=== PATIENT | female | born 1985 | race Asian ===

== ENCOUNTER 2019-11-08 17:37 | Inpatient (IN) | payer OTHER ==
[2019-11-08] MEDS ORDERED: Ibuprofen TAB* 600 MG PO ONE (20:06)
[2019-11-08 20:13] LABS: ABS Eosinophils 0.1 10^3/ul (0-0.6); ABS Lymphocytes 1.1 10^3/ul (1.0-4.8); ABS Monocytes 0.7 10^3/ul (0-0.8); ABS Neutrophils 6.6 10^3/ul (1.5-7.7); Eosinophil % 0.9 %; Hematocrit 33 % (35-47); Hemoglobin 10.9 g/dL (12.0-16.0); Lymphocyte % 13.3 %; Mean Corpuscular HGB Conc 33 g/dL (31-36); Mean Corpuscular Hemoglobin 25 pg (27-31); Mean Corpuscular Volume 75 fL (80-97); Mean Platelet Volume 8.5 fL (7.4-10.4); Platelet Count 282 10^3/uL (150-450); Red Blood Count 4.43 10^6 /uL (3.70-4.87); Red Cell Distribution Width 13 % (10-15); White Blood Count 8.5 10^3/uL (3.5-10.8)
[2019-11-08 20:23] LABS: INR 1.01 (0.82-1.09)
[2019-11-08 20:33] LABS: Albumin 4.2 g/dL (3.2-5.2); Albumin/Globulin Ratio 1.5 (1-3); BUN/Creatinine Ratio 21.2 (8-20); C Reactive Protein 22.61 mg/L (<8.01); Calcium 9.2 mg/dL (8.6-10.3); EGFR African American 162.4 (>60); EGFR Non-African American 134.2 (>60); Globulin 2.8 g/dL (2-4); Potassium 3.5 mmol/L (3.5-5.0); Total Bilirubin 0.4 mg/dL (0.2-1.0)
[2019-11-08] MEDS ORDERED: Piperacillin/Tazobac ADVAN(*) 3.375 GM in NS 0.9% 100 ML* 100 ML IVPB ONE (22:52)
--- NOTE | 2019-11-08 23:05 | ED ---
Skin Complaint - HPI Summary HPI Summary: 34 year old female presents with infection to left ear for the past 3 days. She started doxycycline on Wednesday. States the redness and swelling got worse. She say dr rojo who sent her in IV antibiotics and possible drainage tomorrow. She denies any fevers or chills. She states she has been having drainage from the area. She has no medical conditions. Denies any sinus congestion. No dental pain. took some ibuprofen which helped. - History of Current Complaint Chief Complaint: EDGeneral Time Seen by Provider: 11/08/19 22:40 Stated Complaint: REFERRAL FROM DR ROJO FOR ABCESS PER PT Hx Last Menstrual Period: 04/23/17 Pain Intensity: 2 - Allergy/Home Medications Allergies/Adverse Reactions: Allergies Allergy/AdvReac Type Severity Reaction Status Date / Time No Known Allergies Allergy Verified 05/24/17 07:14 Home Medications: Home Medications Ibuprofen TAB* [Advil TAB*] 600 mg PO Q6HR PRN 11/07/13 [History Confirmed 11/07] Doxycycline Hyclate 100 mg PO BID 11/08/19 [History Confirmed 11/08/19] Loratadine [Claritin] 10 mg PO DAILY 11/08/19 [History Confirmed 11/08/19] PMH/Surg Hx/FS Hx/Imm Hx Endocrine/Hematology History: Denies: Hx Anticoagulant Therapy Respiratory History: Denies: Hx Asthma - Surgical History Surgery Procedure, Year, and Place: ORIF L arm. L eardrum replacement Infectious Disease History: No Infectious Disease History: Denies: Hx Clostridium Difficile, Hx Hepatitis, Hx Human Immunodeficiency Virus (HIV), Hx of Known/Suspected MRSA, Hx Shingles, Hx Tuberculosis, History Other Infectious Disease, Traveled Outside the [place] in Last 30 Days - Family History Known Family History: Positive: Unknown, Other - NO HX OF ANAPHLAXIS - Social History Alcohol Use: Occasionally Substance Use Type: Reports: None Smoking Status (MU): Never Smoked Tobacco Review of Systems Negative: Fever Negative: Chest Pain Negative: Shortness Of Breath Positive: Rash All Other Systems Reviewed And Are Negative: Yes Physical Exam Triage Information Reviewed: Yes Vital Signs On Initial Exam: Initial Vitals Temp Pulse Resp BP Pulse Ox 97.7 F 83 16 132/76 100 11/08/19 17:38 11/08/19 17:38 11/08/19 17:38 11/08/19 17:38 11/08/19 17:38 Vital Signs Reviewed: Yes Appearance: Positive: Well-Appearing Skin: Positive: Warm, Dry Head/Face: Positive: Normal Head/Face Inspection Eyes: Positive: Normal, EOMI, GORDON, Conjunctiva Clear ENT: Positive: Pharynx normal, TMs normal, Other - extensive erythema and edema in front of left ear, some drainage present near ear Respiratory/Lung Sounds: Positive: Clear to Auscultation, Breath Sounds Present Cardiovascular: Positive: Normal, RRR Musculoskeletal: Positive: Normal Neurological: Positive: Normal Psychiatric: Positive: Normal Diagnostics - Vital Signs Vital Signs Temp Pulse Resp BP Pulse Ox 11/08/19 23:00 79 98 11/08/19 22:58 77 140/93 99 11/08/19 22:57 72 100 11/08/19 22:11 98.9 F 80 18 102/61 98 11/08/19 18:52 99.6 F 90 16 116/70 100 11/08/19 17:38 97.7 F 83 16 132/76 100 - Laboratory Lab Results: Lab Results 11/08/19 11/08/19 11/08/19 Range/Units 20:00 20:00 20:00 WBC 8.5 (3.5-10.8) 10^3/uL RBC 4.43 (3.70-4.87) 10^6 /uL Hgb 10.9 L (12.0-16.0) g/dL Hct 33 L (35-47) % MCV 75 L (80-97) fL MCH 25 L (27-31) pg MCHC 33 (31-36) g/dL RDW 13 (10-15) % Plt Count 282 (150-450) 10^3/uL MPV 8.5 (7.4-10.4) fL Neut % (Auto) 77.6 % Lymph % (Auto) 13.3 % [place] % (Auto) 7.8 % Eos % (Auto) 0.9 % Baso % (Auto) 0.4 % Absolute Neuts (auto) 6.6 (1.5-7.7) 10^3/ul Absolute Lymphs (auto) 1.1 (1.0-4.8) 10^3/ul Absolute Monos (auto) 0.7 (0-0.8) 10^3/ul Absolute Eos (auto) 0.1 (0-0.6) 10^3/ul Absolute Basos (auto) 0.0 (0-0.2) 10^3/ul Absolute Nucleated RBC 0.0 10^3/ul Nucleated RBC % 0.0 INR (Anticoag Therapy) 1.01 (0.82-1.09) Sodium 138 (135-145) mmol/L Potassium 3.5 (3.5-5.0) mmol/L Chloride 106 (101-111) mmol/L Carbon Dioxide 27 (22-32) mmol/L Anion Gap 5 (2-11) mmol/L BUN 11 (6-24) mg/dL Creatinine 0.52 (0.51-0.95) mg/dL Est GFR ( Amer) 162.4 (>60) Est GFR (Non-Af Amer) 134.2 (>60) BUN/Creatinine Ratio 21.2 H (8-20) Glucose 81 (70-100) mg/dL Lactic Acid (0.5-2.0) mmol/L Calcium 9.2 (8.6-10.3) mg/dL Total Bilirubin 0.40 (0.2-1.0) mg/dL AST 34 (13-39) U/L ALT 32 (7-52) U/L Alkaline Phosphatase 60 (34-104) U/L C-Reactive Protein 22.61 H (<8.01) mg/L Total Protein 7.0 (6.4-8.9) g/dL Albumin 4.2 (3.2-5.2) g/dL Globulin 2.8 (2-4) g/dL Albumin/Globulin Ratio 1.5 (1-3) 11/08/19 Range/Units 20:00 WBC (3.5-10.8) 10^3/uL RBC (3.70-4.87) 10^6 /uL Hgb (12.0-16.0) g/dL Hct (35-47) % MCV (80-97) fL MCH (27-31) pg MCHC (31-36) g/dL RDW (10-15) % Plt Count (150-450) 10^3/uL MPV (7.4-10.4) fL Neut % (Auto) % Lymph % (Auto) % [place] % (Auto) % Eos % (Auto) % Baso % (Auto) % Absolute Neuts (auto) (1.5-7.7) 10^3/ul Absolute Lymphs (auto) (1.0-4.8) 10^3/ul Absolute Monos (auto) (0-0.8) 10^3/ul Absolute Eos (auto) (0-0.6) 10^3/ul Absolute Basos (auto) (0-0.2) 10^3/ul Absolute Nucleated RBC 10^3/ul Nucleated RBC % INR (Anticoag Therapy) (0.82-1.09) Sodium (135-145) mmol/L Potassium (3.5-5.0) mmol/L Chloride (101-111) mmol/L Carbon Dioxide (22-32) mmol/L Anion Gap (2-11) mmol/L BUN (6-24) mg/dL Creatinine (0.51-0.95) mg/dL Est GFR ( Amer) (>60) Est GFR (Non-Af Amer) (>60) BUN/Creatinine Ratio (8-20) Glucose (70-100) mg/dL Lactic Acid 0.7 (0.5-2.0) mmol/L Calcium (8.6-10.3) mg/dL Total Bilirubin (0.2-1.0) mg/dL AST (13-39) U/L ALT (7-52) U/L Alkaline Phosphatase (34-104) U/L C-Reactive Protein (<8.01) mg/L Total Protein (6.4-8.9) g/dL Albumin (3.2-5.2) g/dL Globulin (2-4) g/dL Albumin/Globulin Ratio (1-3) Result Diagrams: 11/08/19 20:00 11/08/19 20:00 Lab Statement: Any lab studies that have been ordered have been reviewed, and results considered in the medical decision making process. Course/Dx - Course Course Of Treatment: 34 year old female presents with infection to left ear for the past 3 days. She started doxycycline on Wednesday. States the redness and swelling got worse. She say dr rojo who sent her in IV antibiotics and possible drainage tomorrow. She denies any fevers or chills. She states she has been having drainage from the area. She has no medical conditions. Denies any sinus congestion. No dental pain. On exam has erythema and edema around left ear. got wound culture. wbc normal. will start on zosyn. discussed with dr cho who will admit. - Differential Diagnoses - Skin Complaint Differential Diagnoses: Abscess, Cellulitis, Contact Dermatitis - Diagnoses Provider Diagnoses: Cellulitis of left ear - Critical Care Time Critical Care Statement: Critical care time is provided exclusive of any time spent performing procedures. Discharge ED - Sign-Out/Discharge Documenting (check all that apply): Patient Departure - Discharge Plan Condition: Stable Disposition: ADMITTED TO [facility] - Billing Disposition and Condition Condition: STABLE Disposition: Admitted to [facility]
[2019-11-08] MEDS ORDERED: cefTRIAXone(*) 1 GM in NS 0.9% 50 ML* 50 ML IVPB SCH (23:45)
[2019-11-09] MEDS ORDERED: Acetaminophen TAB* 325 MG PO PRN (00:01)
[2019-11-09] MEDS ORDERED: Zosyn per Pharmacy* NOTE FOLLOW UP SCH (01:00)
[2019-11-09] MEDS: Ibuprofen TAB* 600 MG PO PRN ×4 (02:14→21:59)
[2019-11-09] MEDS: ZOSYN 3.375 GM Q8H per EXTENDED INFUSION IVPB SCH ×6 (03:40→19:18)
--- NOTE | 2019-11-09 06:24 | HP ---
CC: Dr. Mae* HISTORY AND PHYSICAL: DATE OF ADMISSION: 11/08/19 PRIMARY CARE PROVIDER: Dr. Mae. ENT: Dr. Worley. CHIEF COMPLAINT: Left ear abscess. HISTORY OF PRESENT ILLNESS: Ms. 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 Worley for a left ear abscess. The patient notes that this past , 11/02/19, her tragus and preauricular area was sore. By 11/04/19, she noted that the preauricular area was swollen. The patient saw her PCP on 11/06/19 via Zoom for complaints of pain and swelling, and was started on doxycycline for presumed preauricular cellulitis. On 11/08/19, she noted the swelling to be worse and, therefore, saw her PCP in person. At that point, the swelling and redness was noted to be markedly worse than what was appreciated via Zoom, and therefore, the patient was urgently referred to ENT. The patient saw Dr. Worley on 11/08/19 and ultimately, was sent into the emergency room to receive IV antibiotics. The patient does note that there has been drainage from the preauricular pit that is near the tragus. There was also some mild drainage from just anterior to the tragus. The patient states that she has had no fever or chills. She has had no nausea or vomiting. There has been no change in hearing. The area is quite sore. PAST MEDICAL HISTORY: None. PAST SURGICAL HISTORY: Right ear surgery. MEDICATIONS: 1. Doxycycline 100 mg p.o. b.i.d. 2. Ibuprofen p.r.n. 3. Claritin 10 mg p.o. daily. ALLERGIES: No known drug allergies. FAMILY HISTORY: Mom is living, she is 61 and healthy. Dad is living, he is 63 and has hyperlipidemia. SOCIAL HISTORY: The patient does not smoke. She states that she has been drinking recently on a daily basis given the quarantining at home, but has not drank anything in the last couple of days. 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 She is not . She has no children. She indicates that her sister, Dionicio, would be her healthcare proxy. REVIEW OF SYSTEMS: A complete 11-system review of systems was obtained. Pertinent positives and negatives are as per HPI and otherwise negative. PHYSICAL EXAMINATION GENERAL: The patient is a well-developed, young female, seen sitting up in the stretcher, in no acute distress. VITAL SIGNS: Blood pressure 140/93; pulse 77; respirations 18; temp 98.9, T- max in the emergency room 99.6; O2 sat 100% on room air. HEENT: Pupils are equal. Extraocular muscles are intact. Oropharynx is clear and moist. There is significant preauricular swelling, mild erythema, and what appeared to be 2 auricular pits are noted with some mild crusting noted. There is erythema that is posterior to the ear. The swelling extends into her cheek and jaw line. It is very tender to palpation. PULMONARY: Lungs are clear to auscultation bilaterally. CARDIAC: Normal S1 and S2, regular rate and rhythm. I do not appreciate any murmurs. ABDOMEN: Bowel sounds are present. Abdomen is soft, nontender, and nondistended. MUSCULOSKELETAL: There is no cyanosis or clubbing of the digits. There is full active range of motion of all 4 extremities. NEURO: Cranial nerves II through XII are grossly intact. Sensation is intact to light touch throughout. Strength is 5/5 and symmetric in both upper and lower extremities bilaterally. PSYCH: The patient is alert, she is oriented x3. Affect appears appropriate. SKIN: Warm and dry. There are no rashes. There is erythema noted above around the left ear. LABORATORY DATA: WBC 8.5, hemoglobin 10.9, hematocrit 33, platelets 282. INR 1.01. Sodium 138, potassium 3.5, chloride 106, CO2 is 27, BUN 11, creatinine 0.52, glucose 81, lactic acid 0.7, calcium 9.2. Bilirubin 0.4, AST 34, ALT 32, alk phos 60. CRP 22.61. Albumin 4.2. ASSESSMENT AND PLAN: Ms. Cantor is a 34-year-old female, who has no significant past medical history, who presents to the emergency room with complaints of left ear redness, pain, swelling, and drainage. 1. Preauricular cellulitis on the left. The patient was seen earlier on by Dr. Worley from ENT. The plan is admission for IV antibiotics. She will be started on Zosyn as per his recommendation. She will be followed up on 11/[address] Worley and decision will be made on whether or not the patient needs to go to the OR for drainage of an abscess. No imaging has been performed at this point; however, if she fails to improve overnight with IV antibiotics, imaging should be considered. She will have Tylenol for mild pain, ibuprofen for moderate pain, and oxycodone for severe pain. She will be n.p.o. after midnight in case she needs to go to the OR. The patient is low risk for surgery given she is in good health and does not need any cardiac evaluation preoperatively. 2. DVT prophylaxis. According to the Adult Thrombosis Prophylaxis Risk Factor Assessment Guide, the patient has a total risk factor score of 0, making her a low risk. Ambulation will be utilized as DVT prophylaxis. 3. Code status is full. TIME SPENT: Fifty minutes was spent admitting this patient. [id number]/[facility] #: [id number] REBECCA
[2019-11-09] MEDS ORDERED: NS 0.9% 1000 ML** 1,000 ML IV SCH (16:00)
--- NOTE | 2019-11-09 17:05 | PN ---
Subjective Date of Service: 11/09/19 Interval History: Ms. Cantor states she has pain rated at 9/10. She only wants ibu/tylenol for pain , as she does not like how the other medications make her feel. Patient reports that she has no decrease in hearing in the L ear, but does report extreme pain that includes the L jaw and eye. She has no other concerns or complaints today. Objective Active Medications: Acetaminophen (Tylenol Tab*) 650 mg PO Q4H PRN PRN Reason: PAIN - MILD Piperacillin Sod/Tazobactam (Sod 3.375 gm/ Sodium Chloride) 100 mls @ 25 mls/ hr IVPB Q8H REY Last Admin: 11/09/19 12:05 Dose: 25 mls/hr Sodium Chloride (Ns 0.9% 1000 Ml) 1,000 mls @ 100 mls/hr IV PER RATE REY Ibuprofen (Motrin Tab*) 600 mg PO Q6H PRN PRN Reason: PAIN - MODERATE Last Admin: 11/09/19 15:58 Dose: 600 mg Oxycodone HCl (Roxycodone Tab*) 5 mg PO Q4H PRN PRN Reason: PAIN - SEVERE Pharmacy Consult (Zosyn Per Pharmacy*) 1 note FOLLOW UP .ZOSYN PER PHARMACY [facility] Vital Signs: Temp Pulse Resp BP Pulse Ox 99.3 F 79 16 110/62 100 11/09/19 15:46 11/09/19 15:46 11/09/19 15:46 11/09/19 15:46 11/09/19 15:46 Oxygen Devices in Use Now: None Appearance: Young female who appears to be very uncomfortable; she is tearful Eyes: No Scleral Icterus, PERRLA Ears/Nose/Mouth/Throat: NL Teeth, Lips, Gums, Clear Oropharnyx, Mucous Membranes Moist, - - L ear is edematous; L preauricular area is erythematous, edematous with skin taut; there is a pinpoint opening in the preauricular area that has no apparent drainage Respiratory: Symmetrical Chest Expansion and Respiratory Effort, Clear to Auscultation Cardiovascular: NL Sounds; No Murmurs; No JVD, RRR, No Edema Extremities: No Edema, No Clubbing, Cyanosis Neurological: Alert and Oriented x 3 Result Diagrams: 11/08/19 20:00 11/08/19 20:00 Additional Lab and Data: Lab Results 11/08/19 11/08/19 11/08/19 Range/Units 20:00 20:00 20:00 WBC 8.5 (3.5-10.8) 10^3/uL RBC 4.43 (3.70-4.87) 10^6 /uL Hgb 10.9 L (12.0-16.0) g/dL Hct 33 L (35-47) % MCV 75 L (80-97) fL MCH 25 L (27-31) pg MCHC 33 (31-36) g/dL RDW 13 (10-15) % Plt Count 282 (150-450) 10^3/uL MPV 8.5 (7.4-10.4) fL Neut % (Auto) 77.6 % Lymph % (Auto) 13.3 % [place] % (Auto) 7.8 % Eos % (Auto) 0.9 % Baso % (Auto) 0.4 % Absolute Neuts (auto) 6.6 (1.5-7.7) 10^3/ul Absolute Lymphs (auto) 1.1 (1.0-4.8) 10^3/ul Absolute Monos (auto) 0.7 (0-0.8) 10^3/ul Absolute Eos (auto) 0.1 (0-0.6) 10^3/ul Absolute Basos (auto) 0.0 (0-0.2) 10^3/ul Absolute Nucleated RBC 0.0 10^3/ul Nucleated RBC % 0.0 INR (Anticoag Therapy) 1.01 (0.82-1.09) Sodium 138 (135-145) mmol/L Potassium 3.5 (3.5-5.0) mmol/L Chloride 106 (101-111) mmol/L Carbon Dioxide 27 (22-32) mmol/L Anion Gap 5 (2-11) mmol/L BUN 11 (6-24) mg/dL Creatinine 0.52 (0.51-0.95) mg/dL Est GFR ( Amer) 162.4 (>60) Est GFR (Non-Af Amer) 134.2 (>60) BUN/Creatinine Ratio 21.2 H (8-20) Glucose 81 (70-100) mg/dL Lactic Acid (0.5-2.0) mmol/L Calcium 9.2 (8.6-10.3) mg/dL Total Bilirubin 0.40 (0.2-1.0) mg/dL AST 34 (13-39) U/L ALT 32 (7-52) U/L Alkaline Phosphatase 60 (34-104) U/L C-Reactive Protein 22.61 H (<8.01) mg/L Total Protein 7.0 (6.4-8.9) g/dL Albumin 4.2 (3.2-5.2) g/dL Globulin 2.8 (2-4) g/dL Albumin/Globulin Ratio 1.5 (1-3) / Range/Units 20:00 WBC (3.5-10.8) 10^3/uL RBC (3.70-4.87) 10^6 /uL Hgb (12.0-16.0) g/dL Hct (35-47) % MCV (80-97) fL MCH (27-31) pg MCHC (31-36) g/dL RDW (10-15) % Plt Count (150-450) 10^3/uL MPV (7.4-10.4) fL Neut % (Auto) % Lymph % (Auto) % [place] % (Auto) % Eos % (Auto) % Baso % (Auto) % Absolute Neuts (auto) (1.5-7.7) 10^3/ul Absolute Lymphs (auto) (1.0-4.8) 10^3/ul Absolute Monos (auto) (0-0.8) 10^3/ul Absolute Eos (auto) (0-0.6) 10^3/ul Absolute Basos (auto) (0-0.2) 10^3/ul Absolute Nucleated RBC 10^3/ul Nucleated RBC % INR (Anticoag Therapy) (0.82-1.09) Sodium (135-145) mmol/L Potassium (3.5-5.0) mmol/L Chloride (101-111) mmol/L Carbon Dioxide (22-32) mmol/L Anion Gap (2-11) mmol/L BUN (6-24) mg/dL Creatinine (0.51-0.95) mg/dL Est GFR ( Amer) (>60) Est GFR (Non-Af Amer) (>60) BUN/Creatinine Ratio (8-20) Glucose (70-100) mg/dL Lactic Acid 0.7 (0.5-2.0) mmol/L Calcium (8.6-10.3) mg/dL Total Bilirubin (0.2-1.0) mg/dL AST (13-39) U/L ALT (7-52) U/L Alkaline Phosphatase (34-104) U/L C-Reactive Protein (<8.01) mg/L Total Protein (6.4-8.9) g/dL Albumin (3.2-5.2) g/dL Globulin (2-4) g/dL Albumin/Globulin Ratio (1-3) Microbiology and Other Data: Microbiology 11/08/19 23:00 Skin and Soft Tissue MRSA/MSSA (PCR - Final Ear - Left Mrsa Negative S.aureus Negative Ear Culture - Preliminary No Growth Day 1 Gram Stain - Final Assess/Plan/Problems-Billing Assessment: Ms. Cantor is a 34yof with no PMHx who presented to the ER after 7 days of worsening L ear pain with preauricular cellulitis and suspected abscess. - Patient Problems (1) Preauricular cellulitis Comment: -L preauricular cellulitis and suspected underlying abscess -Dr. Worley, ENT, consulted; will assess today -continue Zosyn -NPO for possible I & D -continue pain management (2) DVT prophylaxis Comment: -low risk -ambulation (3) Full code status Status and Disposition: Inpatient. Discharge when stable.
[2019-11-09 20:03] LABS: Urine Appearance Clear; Urine Bilirubin Negative (Negative); Urine Blood Negative (Negative); Urine Color Straw; Urine Glucose 2+(150 mg/dL) (Negative); Urine Ketones Trace (Negative); Urine Nitrite Negative (Negative); Urine Protein Negative (Negative); Urine Specific Gravity 1.004 (1.010-1.030); Urine Urobilinogen Negative (Negative)
--- NOTE | 2019-11-09 20:03 | CONS ---
CONSULTATION/HISTORY AND PHYSICAL: DATE OF CONSULT: HISTORY OF PRESENT ILLNESS: This is a 34-year-old woman, who I saw as an emergent referral to the [facility] yesterday for left facial swelling. She had a 1-week history of progressive left facial swellin g which was not responding to oral doxycycline. My impression was that she had a left facial celluli tis, probable early abscess associated with a left preauricular pit. I sent her to emergency departm ent where she was admitted to the hospitalist service last night and started on Zosyn. The patient h as tolerated that medication well, but has persistent pain which is worsening and worsening facial sw elling by her subjective report. PAST SURGICAL HISTORY: The patient has a surgical history of an arm surgery. She has also been an egg donor and apparently had a right ear surgery when she was young, although cannot remember the det ails of that. CURRENT MEDICATIONS: 1. She is on IV Zosyn. 2. She is also getting ibuprofen for pain. 3. At home, the patient is on desloratadine and Zyrtec for management of allergies. 4. She also has been taking doxycycline, which was discontinued when she was admitted. ALLERGIES: She has no known drug allergies, although is allergic apparently to P[place]. FAMILY HISTORY: Noncontributory. 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 She does not smoke. She only consumes alcohol occasionally. REVIEW OF SYSTEMS: Negative other than for significant left ear pain. PHYSICAL EXAM: She has been afebrile since admission to the hospital with a maximum temperature of 9 9.3. She has been stable otherwise satting 100% on room air. On exam, the patient has significant swelling of the left hemiface anterior to the left ear, which ex tends inferiorly into the upper neck and posterior triangle. She does have fluctuance over the preau ricular pit and this is exquisitely tender. DIAGNOSTIC STUDIES/LAB DATA: She does have an slightly elevated white count of 10.9 and has an eleva aliec C-reactive protein of 22. A swab was taken from the ear, although it is unclear what was swabbed because she has not had much drainage and that was negative for MRSA. ASSESSMENT AND PLAN: This patient has an abscess associated with preauricular pit and associated fac ial cellulitis. She is not demonstrating significant clinical improvement on parenteral antibiotics. The plan would be for incision and drainage under anesthesia in the operating room. The patient un derstands the rationale for this procedure, the potential risks which would include the inevitability to small scar and probable need for future procedure to remove the preauricular pit once the inflamm ation has settled down. She will also likely need to be kept in hospital for another 24 hours follow ing the procedure. She understands this and agrees to proceed. [id number]/[facility] #: [id number]
[2019-11-10] MEDS: oxyCODONE TAB* 5 MG TAB PO PRN ×2 (02:41→22:45)
[2019-11-10] MEDS: ZOSYN 3.375 GM Q8H per EXTENDED INFUSION IVPB SCH ×8 (03:47→22:41)
[2019-11-10] MEDS ORDERED: Buffered Lidocaine 1% SYRIN* 1 ML/SYRINGE INTRADERM ONE (07:12)
[2019-11-10] MEDS ORDERED: Famotidine IV* 10 MG/ML 2 ML (20 mg) IV ONE (07:12)
[2019-11-10] MEDS ORDERED: Famotidine IV* 10 MG/ML 2 ML (20 mg) ONE (07:13)
[2019-11-10] MEDS ORDERED: Succinylcholine* 20 MG/ML 10 ML VIAL ONE (07:26)
[2019-11-10] MEDS ORDERED: Midazolam* 1 MG/ML 5 ML VIAL (5 MG) ONE (07:35)
[2019-11-10] MEDS ORDERED: Propofol* 10 MG/ML 20 ML BTL ONE (07:35)
[2019-11-10] MEDS ORDERED: fentaNYL* 50 MCG/ML 2 ML VIAL (100 MCG VIAL) ONE (07:35)
[2019-11-10] MEDS ORDERED: Ketorolac INJ* 30 MG/ML 1 ML VIAL ONE (07:35)
[2019-11-10] MEDS ORDERED: Ondansetron INJ* 2 MG/ML VIAL ONE (07:35)
[2019-11-10] MEDS ORDERED: Dexamethasone IV* 4 MG/ML 1 ML (4 MG) ONE (07:35)
[2019-11-10] MEDS ORDERED: Lidocaine 2% PF * 5 ML VIAL ONE (07:35)
[2019-11-10] MEDS ORDERED: Lidocaine 1% w EPI 1:100,000* MDV 20 ML VIAL ONE (07:42)
[2019-11-10] MEDS ORDERED: Lactated Ringers 1000 ML Bag* 1,000 ML IV SCH (08:00)
[2019-11-10] MEDS ORDERED: Bacitracin OINTMENT* 0.5% 0.5 oz TUBE ONE (08:36)
[2019-11-10] MEDS ORDERED: fentaNYL* 50 MCG/ML 2 ML VIAL (100 MCG VIAL) IV PRN (08:53)
[2019-11-10] MEDS ORDERED: DiMENhydriNATE IV* 50 MG/ML VIAL IV PUSH PRN (08:53)
[2019-11-10] MEDS ORDERED: Naloxone* 0.4 MG/ML 1 ML VIAL IV PRN (08:53)
--- NOTE | 2019-11-10 09:34 | OP ---
OPERATIVE REPORT: DATE OF OPERATION: 11/10/19 - Inpatient, SSU 350-02 DATE OF : 83 ATTENDING SURGEON: Harshad Worley MD HYDRATOR: None. ANESTHESIA: General. PRE-OP DIAGNOSIS: Left facial abscess. POST-OP DIAGNOSIS: Left facial abscess. OPERATIVE PROCEDURE: I and D, left facial abscess. ESTIMATED BLOOD LOSS: Minimal. SPECIMEN: Cultures, aerobic and anaerobic cultures were taken from the purulent discharge. 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 She failed outpatient management on oral antibiotics and was getting progressively worse on IV antibiotics in house. She had developed fluctuance in the region. So, the decision was made to bring the patient to the operating room for I and D. On 11/10/19, the patient was brought to the operating room, general anesthesia was induced and the patient was orally intubated. The patient's left hemiface was prepped with Betadine, draped sterilely, and a time- out was performed.. A 15 blade was used to make a 1 cm incision at the root of the helix. Immediately purulent material was encountered. This was cultured. Mosquito forceps was then used to explore what was a rather relatively large abscess pocket, which extended inferiorly, anteriorly, and posteriorly. Once the abscess was completely opened of all locations, the cavity was copiously irrigated with saline. It was then packed with iodoform gauze. A dressing was applied with Bacitracin ointment. The patient was then extubated and delivered to PACU in stable condition. [id number]/[facility] #: [id number] [facility]
[2019-11-10] MEDS: Ibuprofen TAB* 600 MG PO PRN ×2 (12:08→17:39)
--- NOTE | 2019-11-10 14:37 | PN ---
Subjective Date of Service: 11/10/19 Interval History: Ms. Cantor is seen post-procedure in her room. She states she is tired, as she did not get much sleep last night, due to pain. Currently, she states she is feeling much better, reporting pain at 1-2/10; pain is improved in the L jaw and L eye, as well. No other complaints today. Objective Active Medications: Acetaminophen (Tylenol Tab*) 650 mg PO Q4H PRN PRN Reason: PAIN - MILD Lactated Ringer's (Lactated Ringers 1000 Ml Bag*) 1,000 mls @ 125 mls/hr IV PER RATE REY Piperacillin Sod/Tazobactam (Sod 3.375 gm/ Sodium Chloride) 100 mls @ 200 mls/ hr IVPB Q6H REY Last Admin: 11/10/19 11:15 Dose: 200 mls/hr Ibuprofen (Motrin Tab*) 600 mg PO Q6H PRN PRN Reason: PAIN - MODERATE Last Admin: 11/10/19 12:08 Dose: 600 mg Oxycodone HCl (Roxycodone Tab*) 5 mg PO Q4H PRN PRN Reason: PAIN - SEVERE Last Admin: 11/10/19 02:41 Dose: 5 mg Pharmacy Consult (Zosyn Per Pharmacy*) 1 note FOLLOW UP .ZOSYN PER PHARMACY REY Vital Signs: Temp Pulse Resp BP Pulse Ox 98.2 F 75 16 102/64 99 11/10/19 11:16 11/10/19 11:16 11/10/19 11:16 11/10/19 11:16 11/10/19 11:16 Oxygen Devices in Use Now: None Appearance: Ms. Cantor is a young white female who is laying on R side in bed sleeping; she wakes easily and appears comfortable; NAD Ears/Nose/Mouth/Throat: NL Teeth, Lips, Gums, Clear Oropharnyx, Mucous Membranes Moist, - - L preauricular erythema with L facial swelling, mild swelling into jaw; there is a CDI dressing in place at preauricular area Neck: Trachea Midline Respiratory: Symmetrical Chest Expansion and Respiratory Effort, Clear to Auscultation Cardiovascular: NL Sounds; No Murmurs; No JVD, RRR, No Edema Abdominal: NL Sounds; No Tenderness; No Distention, No Hepatosplenomegaly Extremities: No Edema, No Clubbing, Cyanosis Neurological: - - asleep; wakes easily and is A/O x3 Result Diagrams: 11/08/19 20:00 11/08/19 20:00 Additional Lab and Data: Lab Results 11/08/19 11/08/19 11/08/19 Range/Units 20:00 20:00 20:00 WBC 8.5 (3.5-10.8) 10^3/uL RBC 4.43 (3.70-4.87) 10^6 /uL Hgb 10.9 L (12.0-16.0) g/dL Hct 33 L (35-47) % MCV 75 L (80-97) fL MCH 25 L (27-31) pg MCHC 33 (31-36) g/dL RDW 13 (10-15) % Plt Count 282 (150-450) 10^3/uL MPV 8.5 (7.4-10.4) fL Neut % (Auto) 77.6 % Lymph % (Auto) 13.3 % Brooke % (Auto) 7.8 % Eos % (Auto) 0.9 % Baso % (Auto) 0.4 % Absolute Neuts (auto) 6.6 (1.5-7.7) 10^3/ul Absolute Lymphs (auto) 1.1 (1.0-4.8) 10^3/ul Absolute Monos (auto) 0.7 (0-0.8) 10^3/ul Absolute Eos (auto) 0.1 (0-0.6) 10^3/ul Absolute Basos (auto) 0.0 (0-0.2) 10^3/ul Absolute Nucleated RBC 0.0 10^3/ul Nucleated RBC % 0.0 INR (Anticoag Therapy) 1.01 (0.82-1.09) Sodium 138 (135-145) mmol/L Potassium 3.5 (3.5-5.0) mmol/L Chloride 106 (101-111) mmol/L Carbon Dioxide 27 (22-32) mmol/L Anion Gap 5 (2-11) mmol/L BUN 11 (6-24) mg/dL Creatinine 0.52 (0.51-0.95) mg/dL Est GFR ( Amer) 162.4 (>60) Est GFR (Non-Af Amer) 134.2 (>60) BUN/Creatinine Ratio 21.2 H (8-20) Glucose 81 (70-100) mg/dL Lactic Acid (0.5-2.0) mmol/L Calcium 9.2 (8.6-10.3) mg/dL Total Bilirubin 0.40 (0.2-1.0) mg/dL AST 34 (13-39) U/L ALT 32 (7-52) U/L Alkaline Phosphatase 60 (34-104) U/L C-Reactive Protein 22.61 H (<8.01) mg/L Total Protein 7.0 (6.4-8.9) g/dL Albumin 4.2 (3.2-5.2) g/dL Globulin 2.8 (2-4) g/dL Albumin/Globulin Ratio 1.5 (1-3) / Range/Units 20:00 WBC (3.5-10.8) 10^3/uL RBC (3.70-4.87) 10^6 /uL Hgb (12.0-16.0) g/dL Hct (35-47) % MCV (80-97) fL MCH (27-31) pg MCHC (31-36) g/dL RDW (10-15) % Plt Count (150-450) 10^3/uL MPV (7.4-10.4) fL Neut % (Auto) % Lymph % (Auto) % Brooke % (Auto) % Eos % (Auto) % Baso % (Auto) % Absolute Neuts (auto) (1.5-7.7) 10^3/ul Absolute Lymphs (auto) (1.0-4.8) 10^3/ul Absolute Monos (auto) (0-0.8) 10^3/ul Absolute Eos (auto) (0-0.6) 10^3/ul Absolute Basos (auto) (0-0.2) 10^3/ul Absolute Nucleated RBC 10^3/ul Nucleated RBC % INR (Anticoag Therapy) (0.82-1.09) Sodium (135-145) mmol/L Potassium (3.5-5.0) mmol/L Chloride (101-111) mmol/L Carbon Dioxide (22-32) mmol/L Anion Gap (2-11) mmol/L BUN (6-24) mg/dL Creatinine (0.51-0.95) mg/dL Est GFR ( Amer) (>60) Est GFR (Non-Af Amer) (>60) BUN/Creatinine Ratio (8-20) Glucose (70-100) mg/dL Lactic Acid 0.7 (0.5-2.0) mmol/L Calcium (8.6-10.3) mg/dL Total Bilirubin (0.2-1.0) mg/dL AST (13-39) U/L ALT (7-52) U/L Alkaline Phosphatase (34-104) U/L C-Reactive Protein (<8.01) mg/L Total Protein (6.4-8.9) g/dL Albumin (3.2-5.2) g/dL Globulin (2-4) g/dL Albumin/Globulin Ratio (1-3) Microbiology and Other Data: Microbiology 11/08/19 23:00 Skin and Soft Tissue MRSA/MSSA (PCR - Final Ear - Left Mrsa Negative S.aureus Negative Ear Culture - Preliminary No Growth Day 1 Gram Stain - Final Assess/Plan/Problems-Billing Assessment: Ms. Cantor is a 34yof with no PMHx who presented to the ER after 7 days of worsening L ear pain with preauricular cellulitis and suspected abscess. - Patient Problems (1) Preauricular cellulitis Comment: -L preauricular cellulitis and suspected underlying abscess -Dr. Worley following -s/p I&D 11/09 -cultures pending -BC NGTD -continue Zosyn -continue pain management (2) DVT prophylaxis Comment: -low risk -ambulation (3) Full code status Status and Disposition: Inpatient. Discharge when stable.
[2019-11-11] MEDS: Ibuprofen TAB* 600 MG PO PRN ×2 (04:11→16:22)
[2019-11-11] MEDS: ZOSYN 3.375 GM Q8H per EXTENDED INFUSION IVPB SCH ×8 (05:18→22:29)
[2019-11-11 07:01] LABS: ABS Eosinophils 0.2 10^3/ul (0-0.6); ABS Monocytes 0.6 10^3/ul (0-0.8); ABS Neutrophils 4.8 10^3/ul (1.5-7.7); Eosinophil % 2.3 %; Hematocrit 26 % (35-47); Hemoglobin 8.4 g/dL (12.0-16.0); Lymphocyte % 15.6 %; Mean Corpuscular HGB Conc 32 g/dL (31-36); Mean Corpuscular Hemoglobin 24 pg (27-31); Mean Corpuscular Volume 75 fL (80-97); Mean Platelet Volume 8.4 fL (7.4-10.4); Nucleated Red Blood Cells % 0.1; Platelet Count 236 10^3/uL (150-450); Red Blood Count 3.48 10^6 /uL (3.70-4.87); Red Cell Distribution Width 13 % (10-15); White Blood Count 6.6 10^3/uL (3.5-10.8)
[2019-11-11 07:19] LABS: BUN/Creatinine Ratio 11.9 (8-20); C Reactive Protein 53.44 mg/L (<8.01); Calcium 7.9 mg/dL (8.6-10.3); EGFR African American 140.4 (>60); Potassium 3.5 mmol/L (3.5-5.0)
[2019-11-11 08:21] LABS: % Iron Saturation 21 % (15-55); Iron 43 ug/dL (50-212); Total Iron Binding Capacity 204 mcg/dL (250-450); Transferrin 146 mg/dL (203-362)
[2019-11-11 08:44] LABS: Ferritin 172.1 ng/mL (11-307)
[2019-11-11 08:48] LABS: Folate 17.35 ng/mL (>3.99)
[2019-11-11] MEDS ORDERED: Ferrous Sulfate TAB* 325 MG PO SCH (09:00)
--- NOTE | 2019-11-11 10:16 | PN ---
PROGRESS NOTE: DATE OF VISIT: 11/11/19 TIME OF VISIT: Approximately 9:40 in the morning. HISTORY OF PRESENT ILLNESS: The patient reports significant persistent discomfort of the left preaur icular region. She had an incision and drainage procedure with packing done yesterday in the operati ng room. Review of her vitals suggests that she has had low-grade temperature elevation in the mid 9 9s overnight. She does not have an elevated white count this morning, however, but her C-reactive pr otein is elevated. Cultures are still pending. Cultures from the OR are MRSA negative, gram-positiv e organisms are present on Gram stain, but actual culture and sensitivity are still pending. The pat ient is being maintained on Zosyn. Her dressing was taken down, approximately half of her packing ma terial, which was iodoform 1/4-inch strip was removed and the patient's wound was redressed. Things do appear to be improving in terms of the extensive cellulitis. There is less swelling of the ear an d facial skin anterior and inferior to the abscess site. ASSESSMENT: Left facial cellulitis and abscess associated with preexisting preauricular pit. The pa tient was seemed to be improving somewhat clinically, though I would recommend at least 24 hours more IV antibiotics. I will plan to see her again tomorrow. We will remove the last of her packing stri p and hopefully will have culture and sensitivities back that will allow us to discharge her with corinne ropriate oral coverage. [id number]/[facility] #: [id number]
[2019-11-11] MEDS ORDERED: Polyethylene Glycol 3350* 17 GM PACKET PO PRN (10:31)
[2019-11-11] MEDS ORDERED: Senna TAB 8.6 mg* TAB PO PRN (10:31)
--- NOTE | 2019-11-11 11:59 | PN ---
Subjective Date of Service: 11/11/19 Interval History: Patient feels well today. Patient rates pain at 0.5/10. Patient denies F/C, N/V , abdominal pain, diarrhea, CP, SOB, or other pain. Patient is not dizzy on standing. Patient really wants to take a shower. Family History: Unchanged from Admission Social History: Unchanged from Admission Past Medical History: Unchanged from Admission Objective Active Medications: Acetaminophen (Tylenol Tab*) 650 mg PO Q4H PRN PRN Reason: PAIN - MILD Ferrous Sulfate (Ferrous Sulfate Tab*) 325 mg PO EVERY OTHER DAY [facility] Last Admin: 11/11/19 11:16 Dose: 325 mg Piperacillin Sod/Tazobactam (Sod 3.375 gm/ Sodium Chloride) 100 mls @ 200 mls/ hr IVPB Q6H [facility] Last Admin: 11/11/19 11:16 Dose: 200 mls/hr Ibuprofen (Motrin Tab*) 600 mg PO Q6H PRN PRN Reason: PAIN - MODERATE Last Admin: 11/11/19 04:11 Dose: 600 mg Oxycodone HCl (Roxycodone Tab*) 5 mg PO Q4H PRN PRN Reason: PAIN - SEVERE Last Admin: 11/10/19 22:45 Dose: 5 mg Pharmacy Consult (Zosyn Per Pharmacy*) 1 note FOLLOW UP .ZOSYN PER PHARMACY [facility] Polyethylene Glycol/Electrolytes (Miralax (17 Gm Dose Devon)) 17 gm PO DAILY PRN PRN Reason: CONSTIPATION Last Admin: 11/11/19 11:16 Dose: 17 gm Senna (Senokot 8.6 Mg Tab*) 1 tab PO BEDTIME PRN PRN Reason: CONSTIPATION Vital Signs - 8 hr 11/11/19 11/11/19 11/11/19 04:14 08:48 08:50 Temperature 99.6 F 98.3 F Pulse Rate 81 71 Respiratory 16 16 16 Rate Blood Pressure 110/74 109/68 (mmHg) O2 Sat by Pulse 100 100 Oximetry Oxygen Devices in Use Now: None Appearance: Patient is a 34yo female who appears stated age and is sitting in the bed in NAD. Eyes: No Scleral Icterus, PERRLA Ears/Nose/Mouth/Throat: NL Teeth, Lips, Gums, Clear Oropharnyx, Mucous Membranes Moist, - - Bandages in the preauricular area on the left. Left sided facial swelling. Neck: NL Appearance and Movements; NL JVP, Trachea Midline Respiratory: Symmetrical Chest Expansion and Respiratory Effort, Clear to Auscultation Cardiovascular: NL Sounds; No Murmurs; No JVD, RRR Abdominal: NL Sounds; No Tenderness; No Distention, No Hepatosplenomegaly Lymphatic: No Cervical Adenopathy Extremities: No Edema, No Clubbing, Cyanosis Skin: No Nodules or Sclerosis Neurological: Alert and Oriented x 3, NL Sensation, NL Muscle Strength and Tone , - - CN II-XII intact. Result Diagrams: 11/11/19 06:39 11/11/19 06:39 Additional Lab and Data: Lab Results Microbiology and Other Data: Microbiology 11/08/19 23:00 Skin and Soft Tissue MRSA/MSSA (PCR - Final Ear - Left Mrsa Negative S.aureus Negative Ear Culture - Preliminary No Growth Day 1 Gram Stain - Final Assess/Plan/Problems-Billing Assessment: Ms. Cantor is a 34yof with no PMHx who presented to the ER after 7 days of worsening L ear pain with preauricular cellulitis and suspected abscess. Improving on IV antibiotics. - Patient Problems (1) Preauricular cellulitis Current Visit: Yes Status: Acute Code(s): L03.211 - CELLULITIS OF FACE SNOMED Code(s): 661780917 Comment: - L preauricular cellulitis and suspected underlying abscess drained with packing - Dr. Worley following - S/P I&D 11/09 - Cultures pending - NGTD - Continue Zosyn (11/07-?), failed Doxycycline, hopeful transition to orals tomorrow. - Pain under good control (2) DVT prophylaxis Current Visit: Yes Status: Acute Code(s): Z29.9 - ENCOUNTER FOR PROPHYLACTIC MEASURES, UNSPECIFIED SNOMED Code(s): 497293271 Comment: - Low risk - Ambulation (3) Anemia Current Visit: Yes Status: Acute Code(s): D64.9 - ANEMIA, UNSPECIFIED SNOMED Code(s): 099357392 Comment: - Due to CALLUM - Patient is premenopausal - Start Iron supplementation. - Transfuse below 7. (4) Full code status Current Visit: Yes Status: Acute Code(s): Z78.9 - OTHER SPECIFIED HEALTH STATUS SNOMED Code(s): 177275519 Status and Disposition: Inpatient. Discharge when stable, Hopefully tomorrow.
[2019-11-12] MEDS: Ibuprofen TAB* 600 MG PO PRN (03:16)
[2019-11-12] MEDS: ZOSYN 3.375 GM Q8H per EXTENDED INFUSION IVPB SCH ×4 (05:04→10:06)
[2019-11-12 09:17] LABS: ABS Eosinophils 0.2 10^3/ul (0-0.6); ABS Monocytes 0.4 10^3/ul (0-0.8); ABS Neutrophils 2.6 10^3/ul (1.5-7.7); Eosinophil % 4.1 %; Hematocrit 31 % (35-47); Hemoglobin 9.3 g/dL (12.0-16.0); Lymphocyte % 24.7 %; Mean Corpuscular HGB Conc 30 g/dL (31-36); Mean Corpuscular Hemoglobin 24 pg (27-31); Mean Corpuscular Volume 80 fL (80-97); Mean Platelet Volume 8.2 fL (7.4-10.4); Platelet Count 237 10^3/uL (150-450); Red Blood Count 3.86 10^6 /uL (3.70-4.87); Red Cell Distribution Width 13 % (10-15); White Blood Count 4.1 10^3/uL (3.5-10.8)
--- NOTE | 2019-11-12 10:40 | PN ---
PROGRESS NOTE: DATE OF VISIT: 11/12/19 SUBJECTIVE: Assessment this morning as that the patient looks well, she reports a very little pain over the night and feels she has made good progress over the last 24 hours. OBJECTIVE: She has diminished facial swelling. She has been afebrile and does not have an elevated white count on blood work today. Cultures are still pending from the OR. There was no growth today, but gram-positive cocci and bacilli were seen on the Gram stain, and she seems to be responding to Zosyn. ASSESSMENT: So, the assessment would be resolving facial cellulitis, status post I and D of preauricular abscess. I did remove the last of the remaining packing. I reviewed wound care instructions with the patient, which is basically to keep some antibiotic ointment at the incision site and to keep a light dressing in place as long as there is drainage through the incision. She should refrain from getting a directly wet in the shower until the skin has healed, which I would anticipate this in about 48 hours. PLAN: Would be to release her to home today. I discussed this with Tod Fox. He will place her on a 10-day course of Augmentin. I will see her at the conclusion of that course of the antibiotic therapy in the office, sooner if she starts to get worsening in the outpatient setting. [id number]/[facility] #: [id number] REBECCA
[2019-11-12 11:25] VITALS: BP 111/65
--- NOTE | 2019-11-12 16:24 | DS ---
CC: Dr. Mae; Dr. Radha Yusuf; Dr. Harshad Worley* DISCHARGE SUMMARY: DATE OF ADMISSION: 11/08/19 DATE OF DISCHARGE: 11/12/19 PRIMARY CARE PROVIDER: Dr. Mae. MY ATTENDING WHILE IN THE HOSPITAL: Dr. Radha Yusuf* (dictated by FEI Villa). CONSULTING EAR NOSE AND THROAT DOCTOR: Dr. Harshad Worley. PRIMARY DISCHARGE DIAGNOSES: 1. Left periauricular cellulitis with abscess, status post incision and drainage. 2. Iron deficiency anemia. SECONDARY DISCHARGE DIAGNOSIS: None. STUDIES DONE WHILE IN THE HOSPITAL: None. MEDICATIONS AT DISCHARGE: 1. Amoxicillin clavulanate 875 mg p.o. b.i.d. x21 doses. 2. Ferrous sulfate 325 mg p.o. every other day. 3. Ibuprofen 600 mg p.o. q.6 hours as needed. 4. Loratadine 10 mg p.o. daily. 5. Tylenol 650 mg p.o. q.4 hours as needed. New medication at discharge: 1. Tylenol. 2. Augmentin. 3. Ferrous sulfate. Medications discontinued at discharge: Doxycycline 100 mg p.o. b.i.d. HOSPITAL COURSE: This is a brief summary of the patient's presentation. For more details, please see the history and physical from Norma Mccain DO on . In brief, the patient is a 34-year-old female with no significant past medical history, who has a known preauricular pit, which became infected and much worse refractory to doxycycline on the day before her admission. The patient came into the emergency department on 11/08/19 due to the recommendation of Dr. Worley for IV antibiotics. The patient in the emergency department was found to be mildly anemic with elevated CRP and no other significant laboratory findings. The patient was started on Zosyn, and on 11/09, had an incision and drainage with Dr. Worley with packing of the wound. The patient was continued on IV antibiotics. The patient had no fevers while in the hospital, no white blood cell count, no persistent hypotension. The patient's pain decreased significantly throughout her hospitalization to the point she had no pain on day of discharge. The patient's intraoperative wound cultures did not grow any bacteria; however, initially ear culture grew Staphylococcus lugdunensis and actinomyces. Due to the patient's improvement, the patient was stable and amenable for discharge to home per Dr. Worley's recommendations 11/12/19. PHYSICAL EXAMINATION ON DISCHARGE: General: The patient is a 34-year-old female, who appears stated age and sitting on the bed, in no acute distress. Vital signs: At the time of discharge; temperature 98.2, pulse rate 79, respiratory rate 16, oxygen saturation 100% on room air, blood pressure 111/65. HEENT: Head: Normocephalic, atraumatic. Sclerae anicteric. No conjunctival injection. Nasal mucosa moist. Oral mucosa moist. No pharyngeal erythema, discharge, or exudate. Left-sided facial swelling with left preauricular abscess and site covered in a dressing and not visualized. Neck: Supple, nontender. No lymphadenopathy. No carotid bruits. No JVD. Cardiac: Regular rate and rhythm. No clicks, murmurs, gallops, or rubs. Pulses 2+ in bilateral dorsalis pedis, posterior tibialis, and radial areas. Respiratory: Clear to auscultation bilaterally. No wheezes, rales, or rhonchi. Good air exchange bilaterally. Abdomen: Soft, nontender, and nondistended. Bowel sounds present , normoactive in all 4 quadrants. No hepatosplenomegaly. No abdominal bruits auscultated or hepatojugular reflux. Genitourinary: No suprapubic or CVA tenderness. Skin: The above mentioned surgical site. No other rashes or ulcers. Neuro: Cranial nerves II through XII intact. No focal deficits. Alert and oriented x3. Psychiatric: Pleasant and cooperative. DISCHARGE PLAN BY PROBLEM: 1. Left preauricular abscess with cellulitis, status post incision and drainage. The patient will follow up with Dr. Worley closely to assess for continued resolution and possible need for intervention on the patient's preauricular pit. The patient will continue 21 more doses of Augmentin. The patient shows no sign of overwhelming systemic infection. The patient has no pain. She has ibuprofen and Tylenol for this. The patient should use a light dressing as long as there is drainage from the incision. 2. Anemia, iron deficiency. The patient has iron deficiency anemia, which is a known problem for her. The patient states she stopped taking her iron supplementation approximately 3 years ago. This is likely related to the patient's menstrual bleeding and she should be continued on iron and follow up with primary care provider with regard to this issue. The patient discontinued her iron previously due to side effects. The patient has been started on iron every other day to help decrease GI related side effects from iron with some study showing equal efficacy in iron delivery. DISPOSITION AT THE TIME OF DISCHARGE: Home. CONDITION AT THE TIME OF DISCHARGE: Stable. TIME SPENT: Approximately 45 minutes was spent on the discharge of this patient , 30 of which was spent [id number] with the patient obtaining history and physical and discussing treatment plan. FEI VILLA [id number]/[facility] #: [id number] REBECCA
== END 2019-11-12 12:40 | disposition home or self-care (01) | DRG 156 ==
LOC: ED 17:37 → SSU 23:59
PROVIDERS: ADMIT Hospitalist; ATTEND Internal Medicine
PROC: 0H91XZZ Drainage of Face Skin, External Approach (ICD-10-PCS; principal; 2019-11-10 08:00)
DX: H60.02 Abscess of left external ear (principal); H60.12 Cellulitis of left external ear; D50.9 Iron deficiency anemia, unspecified; B95.7 Other staphylococcus as the cause of diseases classified elsewhere; Z79.899 Other long term (current) drug therapy; Z83.438 Family history of other disorder of lipoprotein metabolism and other lipidemia; Z91.018 Allergy to other foods
CPT/HCPCS: 36415; 80048; 80053; 81003; 81025; 82607; 82728; 82746; 83540; 83550; 83605; 85025; 85610; 86140; 87040; 87070; 87073; 87077; 87186; 87205; 87640; 87641; 96360; 99283; A9270-GY; J0330; J1100; J1885; J2250; J2405; J2543; J2704; J3010